=== PATIENT | female | born 1950 | race Caucasian/White ===

== ENCOUNTER 2017-09-11 20:02 | Inpatient (IN) | payer OTHER, MEDICARE ==
[~2017-09-11] VITALS: Ht 152.4 cm; Wt 59.5 kg
[~2017-09-11 20:02] MED LIST: COL250 PO; COUMADIN5 MG PO; COZ25; DIL4 PO; DILAUDID; FENTANYL TR25 MCG/H1 TOP; LAC PO; LACTULOSE10 GM/152 PO; LEVOFLOXACIN500 M1 PO; MAC100 PO; MELOXICAM7.5 M1 PO; MOBIC; MOBIC PO; NEURONTIN600 MG PO; NOR10T PO; PERCOCET1 TA2 PO; RES30; RES30 PO; RESTORIL30 MG PO; SOM350 PO; SYNTHROID0.05 MG PO; TIZANIDINE HCL4 MG PO; ZOL50 PO; ZOLOFT PO; ZOLOFT25 MG PO; [UNRECOGNIZED DRUG - OTHER]
[2017-09-11 21:15] LABS: UA SPECIFIC GRAVITY 1.015 (1.005-1.035); microscopic required? YES; urine erythrocyte TRACE (NEGATIVE)
[2017-09-11 21:29] LABS: BASOPHIL % 0.7 % (0-2); PLATELET COUNT 294 x10^3mcL (130-400)
[2017-09-11 21:30] LABS: CALCIUM 8.8 mg/dL (8.5-10.1); CARBON DIOXIDE 27.2 mmol/L (21-32); POTASSIUM SERUM 4.5 mmol/L (3.5-5.1); RED CELL DISTRIBUTION WIDTH 21.9 % (11.5-14.5)
[2017-09-11 21:35] LABS: BILIRUBIN TOTAL 0.5 mg/dL (0.20-1.00); TOTAL PROTEIN, SERUM 7.3 g/dL (6.4-8.2)
[2017-09-11 21:36] LABS: ALBUMIN 2.5 g/dL (3.4-5.0)
[2017-09-11] MEDS ORDERED: LYRICA75 M1 PO (23:30)
[2017-09-11] MEDS ORDERED: METHOTREXATE2.5 M2 PO (23:30)
[2017-09-11] MEDS ORDERED: ZOLOFT100 MG PO (23:32)
[2017-09-11] MEDS ORDERED: HYDROMORPHONE2 M1 PO (23:32)
[2017-09-11] MEDS ORDERED: DIFLUCAN200 MG PO (23:33)
[2017-09-11] MEDS ORDERED: METHADONE HCL10 MG PO (23:33)
[2017-09-11] MEDS ORDERED: AMBIEN10 MG PO (23:33)
[2017-09-11] MEDS ORDERED: PANTOPRAZOLE SO40 M1 PO (23:33)
[2017-09-11] MEDS ORDERED: ALPRAZOLAM XR0.5 M2 PO (23:34)
[2017-09-11] MEDS ORDERED: OXYCODONE HCL E15 MG PO (23:34)
[2017-09-12] VITALS (7 sets, daily range): BP systolic 89–132; BP diastolic 41–78; Ht 152.4 cm; Wt 59.5 kg
[2017-09-12 00:33] LABS: CHOLESTEROL/HDL RATIO 2.7; PHOSPHOROUS 3.9 mg/dL (2.5-4.9)
[2017-09-12 00:40] LABS: T3 TOTAL 0.69 ng/mL
[2017-09-12 00:48] LABS: FREE T4 0.81 ng/dL (0.76-1.46)
[2017-09-12 00:49] LABS: FREE THYROXINE INDEX 1.5 ug/dL (1.4-4.5); T4(THYROXINE) 4.5 ug/dL (4.7-13.3)
[2017-09-12 16:57] LABS: RED BLOOD CELLS 3.99 M/mm3 (4.10-5.10)
[2017-09-12 17:09] LABS: IRON 11 ug/dL (50-170); TOTAL IRON BINDING CAPACITY 241 ug/dL (250-450)
[2017-09-12 17:46] LABS: AMPHETAMINE QUAL UR NONE DETECTED (NEG <=1000)
[2017-09-13 05:56] VITALS: BP 116/48
[2017-09-13 07:04] LABS: CALCIUM 7.9 mg/dL (8.5-10.1); CARBON DIOXIDE 22.8 mmol/L (21-32); MAGNESIUM 1.9 mg/dL (1.8-2.4); PHOSPHOROUS 3.5 mg/dL (2.5-4.9); POTASSIUM SERUM 4.2 mmol/L (3.5-5.1)
[2017-09-13 08:31] LABS: BASOPHIL % 0.3 % (0-2); PLATELET COUNT 213 x10^3mcL (130-400)
[2017-09-13 08:32] LABS: RED CELL DISTRIBUTION WIDTH 21.4 % (11.5-14.5)
[2017-09-13 09:40] VITALS: BP 115/42
[2017-09-13 13:46] VITALS: BP 121/46
[2017-09-13 17:10] VITALS: BP 125/53
[2017-09-13 19:30] VITALS: BP 117/57
[2017-09-14 05:16] VITALS: BP 121/55
[2017-09-14 06:48] LABS: BASOPHIL % 0.5 % (0-2); PLATELET COUNT 220 x10^3mcL (130-400)
[2017-09-14 06:59] LABS: CARBON DIOXIDE 23.9 mmol/L (21-32); CHLORIDE SERUM 111 mmol/L (98-107); CREATININE SERUM 0.9 mg/dL (0.6-1.0); GFR1 > 60 mL/min; GLUCOSE SERUM 83 mg/dL (74-106); SODIUM SERUM 141 mmol/L (136-145)
[2017-09-14 09:37] VITALS: BP 127/44
[2017-09-14] MEDS ORDERED: LEVAQUIN750 MG PO (09:57)
[2017-09-14] MEDS ORDERED: LAC PO (09:59)
[2017-09-14] MEDS ORDERED: VITC PO (09:59)
[2017-09-14] MEDS ORDERED: FER300 PO (10:01)
[2017-09-14] MEDS ORDERED: COL100 PO (10:01)
[2017-09-14 11:53] VITALS: BP 127/44
[2017-09-14 14:09] VITALS: BP 131/62
== END 2017-09-14 15:30 | disposition home health service (06) | DRG 917 ==
LOC: ED 20:02 → DU 23:39
PROVIDERS: Emergency Medicine; Family Medicine
DX: T40.2X1A Poisoning by other opioids, accidental (unintentional), initial encounter (principal); E43 Unspecified severe protein-calorie malnutrition; G92 Toxic encephalopathy; N39.0 Urinary tract infection, site not specified; E87.1 Hypo-osmolality and hyponatremia; F33.1 Major depressive disorder, recurrent, moderate; K21.9 Gastro-esophageal reflux disease without esophagitis; M06.9 Rheumatoid arthritis, unspecified; M79.7 Fibromyalgia; I10 Essential (primary) hypertension; E03.9 Hypothyroidism, unspecified; W18.39XA Other fall on same level, initial encounter; F41.9 Anxiety disorder, unspecified; M81.0 Age-related osteoporosis without current pathological fracture; R31.9 Hematuria, unspecified; M17.0 Bilateral primary osteoarthritis of knee; R26.81 Unsteadiness on feet; D63.8 Anemia in other chronic diseases classified elsewhere; E87.8 Other disorders of electrolyte and fluid balance, not elsewhere classified; G90.8 Other disorders of autonomic nervous system; Z68.25 Body mass index [BMI] 25.0-25.9, adult; Y92.89 Other specified places as the place of occurrence of the external cause; Y93.89 Activity, other specified; Y99.8 Other external cause status; Z90.710 Acquired absence of both cervix and uterus; Z90.49 Acquired absence of other specified parts of digestive tract; Z98.51 Tubal ligation status; Z82.49 Family history of ischemic heart disease and other diseases of the circulatory system; Z80.1 Family history of malignant neoplasm of trachea, bronchus and lung
CPT/HCPCS: 83880; 84439; 97110-GP; 97530-GP; 97542-GP; J1450; J1644; J1885; J1956; J2270; J2310; J2405; J2916; J3490; J7030; Q0092

== ENCOUNTER 2017-11-22 12:14 | Emergency (ER) | payer OTHER, MEDICARE ==
[~2017-11-22] VITALS: Ht 152.4 cm; Wt 59.0 kg
[~2017-11-22 12:14] MED LIST changes: +ALPRAZOLAM XR0.5 M2 PO; +AMBIEN10 MG PO; +COL100 PO; +DIFLUCAN200 MG PO; +FER300 PO; +HYDROMORPHONE2 M1 PO; +LEVAQUIN750 MG PO; +LYRICA75 M1 PO; +METHADONE HCL10 MG PO; +METHOTREXATE2.5 M2 PO; +OXYCODONE HCL E15 MG PO; +PANTOPRAZOLE SO40 M1 PO; +VITC PO; +ZOLOFT100 MG PO
[2017-11-22 12:17] VITALS: Ht 152.4 cm; Wt 59.0 kg
[2017-11-22 14:26] VITALS: BP 160/75
== END 2017-11-22 14:26 | disposition home or self-care (01) ==
LOC: ED 12:14
DX: S82.891A Other fracture of right lower leg, initial encounter for closed fracture (principal); E03.9 Hypothyroidism, unspecified; M81.0 Age-related osteoporosis without current pathological fracture; X50.1XXA Overexertion from prolonged static or awkward postures, initial encounter; Y93.89 Activity, other specified; Y92.89 Other specified places as the place of occurrence of the external cause; Y99.8 Other external cause status
CPT/HCPCS: J3010; Q0092

== ENCOUNTER 2018-10-13 09:40 | Emergency (ER) | payer OTHER, MEDICARE ==
[~2018-10-13] VITALS: Ht 167.6 cm; Wt 81.6 kg
[2018-10-13 09:45] VITALS: Ht 167.6 cm; Wt 81.6 kg
[2018-10-13 10:21] LABS: PLATELET COUNT 293 x10^3mcL (130-400)
[2018-10-13 10:33] LABS: BASOPHIL % 2.2 % (0-2); RED CELL DISTRIBUTION WIDTH 16.9 % (11.5-14.5)
[2018-10-13 10:52] LABS: CALCIUM 10.1 mg/dL (8.5-10.1); CARBON DIOXIDE 24.9 mmol/L (21-32); CHLORIDE SERUM 105 mmol/L (98-107); CREATININE SERUM 1.2 mg/dL (0.6-1.0); GFR1 47 mL/min; GLUCOSE SERUM 65 mg/dL (74-106); POTASSIUM SERUM 4.1 mmol/L (3.5-5.1); SODIUM SERUM 144 mmol/L (136-145)
[2018-10-13 11:07] LABS: ALKALINE PHOSPHATASE 104 U/L (46-116); ALT/SGPT 17 U/L (14-59); AST/SGOT 18 U/L (15-37); BILIRUBIN TOTAL 0.36 mg/dL (0.20-1.00); T4(THYROXINE) 6.5 ug/dL (4.7-13.3); TOTAL PROTEIN, SERUM 7.6 g/dL (6.4-8.2)
[2018-10-13 11:11] LABS: ALBUMIN 3.3 g/dL (3.4-5.0)
[2018-10-13 14:45] VITALS: BP 155/76
[2018-10-13 14:50] LABS: microscopic required? YES; urine erythrocyte 2+ (NEGATIVE)
[2018-10-13 14:59] LABS: AMPHETAMINE QUAL UR NONE DETECTED (See below)
== END 2018-10-13 16:35 | disposition home or self-care (01) ==
LOC: ED 09:40
PROVIDERS: Emergency Medicine
DX: N39.0 Urinary tract infection, site not specified (principal); G89.29 Other chronic pain; G47.00 Insomnia, unspecified; E03.8 Other specified hypothyroidism
CPT/HCPCS: G0480; J0696; J7040; Q0092

== ENCOUNTER 2019-05-25 17:36 | Emergency (ER) | payer OTHER, MEDICARE ==
[~2019-05-25] VITALS: Ht 160 cm; Wt 54.4 kg
[2019-05-25 17:42] VITALS: Ht 160 cm; Wt 54.4 kg
[2019-05-25 18:33] LABS: UA SPECIFIC GRAVITY >=1.030 (1.005-1.035); microscopic required? YES; urine erythrocyte NEGATIVE (NEGATIVE)
[2019-05-25 20:02] VITALS: BP 105/51
[2019-05-25 21:14] LABS: ALBUMIN 3.6 g/dL (3.4-5.0); ALKALINE PHOSPHATASE 80 U/L (46-116); ALT/SGPT 22 U/L (14-59); CARBON DIOXIDE 17.9 mmol/L (21-32); GLUCOSE SERUM 96 mg/dL (74-106); TOTAL PROTEIN, SERUM 7.3 g/dL (6.4-8.2)
[2019-05-25 21:23] LABS: AST/SGOT 11 U/L (15-37); CALCIUM 9.3 mg/dL (8.5-10.1); CHLORIDE SERUM 106 mmol/L (98-107); CREATININE SERUM 0.6 mg/dL (0.6-1.0); GFR1 > 60 mL/min; MAGNESIUM 1.9 mg/dL (1.8-2.4); SODIUM SERUM 142 mmol/L (136-145)
== END 2019-05-25 21:17 | disposition home or self-care (01) ==
LOC: ED 17:36
PROVIDERS: Emergency Medicine
DX: A08.4 Viral intestinal infection, unspecified (principal); I10 Essential (primary) hypertension
CPT/HCPCS: 83880; 87804; J2405; J2765; J7030